=== PATIENT | male | born 1965 | race Caucasian/White ===

== ENCOUNTER 2017-09-15 10:37 | Emergency (ER) | payer SELFPAY ==
[2017-09-15 11:22] LABS: #Eosinphils 0.2 thou/uL (0.0-0.7); #Lymphocytes 1.5 thou/uL (1.20-3.40); #Monocytes 0.7 thou/uL (0.11-0.59); #Neutrophils 8.2 thou/uL (1.40-6.50); %Basophils 0.5 % (0.0-1.0); %Eosinophils 1.7 % (0.0-10.0); %Lymphocytes 14.2 % (21.0-51.0); %Monocytes 6.2 % (0.0-10.0); %Neutrophils 77.4 % (42.0-75.0); Hemoglobin 13.7 g/dL (14.0-18.0); Mean Corpuscular HGB CONC 34.2 g/dL (32.0-36.0); Mean Corpuscular Hemoglobin 31.6 pg (27.0-31.0); Mean Corpuscular Volume 92.4 fl (80.0-94.0); Mean Platelet Volume 6.5 fL (7.4-10.4); Platelet Count 216 thou/uL (130-400); RBC Distribution Width 11.3 % (11.5-14.5); Red Blood Cell (RBC) Count 4.34 mill/uL (4.70-6.10); White Blood Cell (WBC) Count 10.6 thou/uL (4.8-10.8)
[2017-09-15 11:29] LABS: ALT (SGPT) 15 U/L (8-55); AST (SGOT) 15 U/L (5-34); Albumin 4.2 g/dL (3.5-5.0); Alkaline Phosphatase 74 U/L (40-150); Anion Gap 12 mmol/L (10-20); BUN (Urea Nitrogen) 17 mg/dL (8.4-25.7); Bilirubin, Total 0.3 mg/dL (0.2-1.2); Calc. Creatinine Clearance 0 mL/min (70-130); Calcium 9.5 mg/dL (7.8-10.44); Carbon Dioxide 25 mmol/L (22-29); Chloride 107 mmol/L (98-107); Estimated GFR-MDRD Greater than 90; Glucose 102 mg/dL (70-105); Potassium 4.3 mmol/L (3.5-5.1); Protein, Total 7.2 g/dL (6.0-8.3); Sodium 140 mmol/L (136-145)
[2017-09-15] MEDS ORDERED: Adacel (T-DAP) 0.5 ML VIAL ONE (12:21)
[2017-09-15] MEDS ORDERED: Lidocaine 1% w/Epinephrine 1:100K 30 ML VIAL ONE (12:35)
[2017-09-15] MEDS ORDERED: Midazolam HCl 10 mg/2 ml Vial ONE (12:35)
--- NOTE | 2017-09-15 12:38 | CT ---
CT PELVIS WITH CONTRAST: 09/15/2017 TECHNIQUE: A spiral CT of the pelvis was performed to evaluate a soft tissue abscess in the rectoscrotal region . Axial slices were acquired after a bolus of IV contrast. Coronal and sagittal reconstructions we re then done. There is no evidence of intrapelvic abscess, free fluid, or other pelvic inflammatory change. No pe lvic masses were identified. No free air or free fluid was seen. The ischiorectal fossa on each si de was clear. No abscess was seen entering them. The prostate does not appear exceptionally enlarg ed. I am hard pressed on the views provided to see the soft tissue abscess. IMPRESSION: No intrapelvic pathology demonstrated. POS: [facility]
[2017-09-15 13:16] LABS: Bilirubin Negative (Negative); Blood, Urine Negative (Negative); Clarity Slightly Cloudy (Clear); Glucose, Urine (Dipstick) Negative (Negative); Leukocyte Negative (Negative); Nitrite Negative (Negative); Protein, Urine (Dipstick) Negative (Neg-Trace); Specific Gravity, Urine 1.015 (1.005-1.030); pH, Urine 7.5 (5.0-9.0)
== END 2017-09-15 13:40 | disposition home or self-care (01) ==
LOC: BURERS 10:37
DX: L02.215 Cutaneous abscess of perineum (principal); F17.210 Nicotine dependence, cigarettes, uncomplicated; Z23 Encounter for immunization
CPT/HCPCS: 10060; 36415; 72193; 80053; 81003; 83605; 85025; 87040; 87086; 90471; 90715; 96365; 96375; 96376; J1170; J2001; J2250; J3490

== ENCOUNTER 2020-01-01 14:11 | Emergency (ER) | payer SELFPAY ==
[2020-01-01] MEDS ORDERED: HYDROcodone/Acetaminophen 5/325 mg Tablet ONE (15:50)
--- NOTE | 2020-01-01 22:46 | RAD ---
PORTABLE CHEST: 01/01/20 Comparison is made with the 02/18/19 study. The heart is normal in size and the lungs are clear. There is no sign of pneumonia or pleural effusi on. The mediastinum was unremarkable in appearance. IMPRESSION: No acute findings. POS: [facility]
== END 2020-01-01 16:05 | disposition home or self-care (01) ==
LOC: BURERS 14:11
DX: J11.1 Influenza due to unidentified influenza virus with other respiratory manifestations (principal); F17.210 Nicotine dependence, cigarettes, uncomplicated
CPT/HCPCS: 71045; 87804

== ENCOUNTER 2023-11-19 18:24 | Emergency (ER) | payer SELFPAY ==
[2023-11-19] MEDS ORDERED: Morphine 4 MG/ML VIAL ONE (18:42)
[2023-11-19] MEDS ORDERED: Ketorolac Tromethamine 30 MG (1 mL) VIAL ONE (18:43)
== END 2023-11-19 19:47 | disposition home or self-care (01) ==
LOC: BURERS 18:24
DX: S23.3XXA Sprain of ligaments of thoracic spine, initial encounter (principal); J44.9 Chronic obstructive pulmonary disease, unspecified; F17.210 Nicotine dependence, cigarettes, uncomplicated; X50.0XXA Overexertion from strenuous movement or load, initial encounter
CPT/HCPCS: 71045; 96372; J1885; J2270